=== PATIENT | male | born 1985 | race Caucasian/White ===

== ENCOUNTER 2017-08-25 00:27 | Emergency (ER) | payer OTHER ==
[~2017-08-25] VITALS: Ht 170.2 cm; Wt 102.3 kg
[~2017-08-25 00:27] MED LIST: CEPHALEXIN500 M1 PO; DOXYCYCLINE 10100 MG PO; NORCO 325 MG-51 TAB PO
[2017-08-25 00:29] VITALS: BP 135/42; TEMP 98.2
[2017-08-25] MEDS ORDERED: FLEXERIL 1010 MG/TAB PO (00:58)
[2017-08-25 02:12] VITALS: PULSE 79
== END 2017-08-25 02:14 | disposition home or self-care (01) ==
LOC: COL.ER 00:27
DX: S16.1XXA Strain of muscle, fascia and tendon at neck level, initial encounter (principal); S29.012A Strain of muscle and tendon of back wall of thorax, initial encounter; S39.012A Strain of muscle, fascia and tendon of lower back, initial encounter; V47.5XXA Car driver injured in collision with fixed or stationary object in traffic accident, initial encounter; Y93.I9 Activity, other involving external motion; Y92.410 Unspecified street and highway as the place of occurrence of the external cause

== ENCOUNTER 2019-05-21 21:05 | Emergency (ER) | payer OTHER ==
[~2019-05-21] VITALS: Ht 170.2 cm; Wt 113.6 kg
[~2019-05-21 21:05] MED LIST changes: +FLEXERIL 1010 MG/TAB PO
[2019-05-21 21:14] VITALS: BP 142/76; TEMP 99
[2019-05-21 22:35] LABS: BASO # 0.1 (0.0-0.2); BASO % 0.5 % (0.0-2.0); EOS # 0.7 (0.0-0.7); EOS % 5.1 % (0-4.0); GRAN # 8.4 (1.4-6.5); GRAN % 61.8 % (42.2-75.2); HEMATOCRIT 43.9 % (42.0-52.0); HEMOGLOBIN 14.8 g/dl (13.5-18.0); LYMPH # 3.1 (1.2-3.4); LYMPH % 22.9 % (20.0-51.0); MEAN CELL VOLUME 92 fl (80.0-100.0); MEAN CORPUSCULAR HEMOGLOBIN 31 pg (27.0-31.0); MEAN CORPUSCULAR HGB CONC 34 g/dl (33.0-37.0); MEAN PLATELET VOLUME 9.7 fl (7.4-10.4); MONO # 1.2 (0.1-0.6); MONO % 8.8 % (1.7-9.3); PLATELET COUNT 258 K/mm3 (130-400); REDCELL DISTRIBUTION WIDTH-CV 12.4 % (11.5-14.5)
[2019-05-21 22:47] LABS: ALBUMIN 4.7 gm/dL (3.5-5.0); BILIRUBIN,TOTAL 0.7 mg/dL (0.0-1.0); C-REACTIVE PROTEIN 5.7 mg/dL (0.0-0.9); CALCIUM 9.6 mg/dL (8.4-10.2); CREATININE, serum 1.18 (0.66-1.25); POTASSIUM 3.9 mmol/L (3.4-5.0); TOTAL PROTEIN 9.1 gm/dL (6.4-8.2)
[2019-05-21 22:55] LABS: MONOSCREEN NEGATIVE
[2019-05-21] MEDS ORDERED: ZITHROMAX 250M250 MG PO (23:14)
[2019-05-22 00:09] VITALS: PULSE 93
== END 2019-05-22 00:09 | disposition home or self-care (01) ==
LOC: COL.ER 21:05
PROVIDERS: Physician Assistant
DX: M79.10 Myalgia, unspecified site (principal); R53.81 Other malaise; R59.1 Generalized enlarged lymph nodes; Z87.891 Personal history of nicotine dependence
CPT/HCPCS: J1885

== ENCOUNTER 2019-09-07 20:09 | Emergency (ER) | payer OTHER ==
[~2019-09-07] VITALS: Ht 170.2 cm; Wt 109.1 kg
[~2019-09-07 20:09] MED LIST changes: +ZITHROMAX 250M250 MG PO
[2019-09-07 20:22] VITALS: BP 136/79; TEMP 97.9
[2019-09-07] MEDS ORDERED: TUSS PO ×2 (21:49→21:56)
[2019-09-07] MEDS ORDERED: LEVAQUIN 750MG750 M1 PO (21:49)
[2019-09-07 22:17] VITALS: PULSE 84
== END 2019-09-07 22:17 | disposition home or self-care (01) ==
LOC: COL.ER 20:09
DX: J20.9 Acute bronchitis, unspecified (principal)